=== PATIENT | male | born 1985 | race Caucasian/White ===

== ENCOUNTER 2017-07-09 18:45 | Emergency (ER) | payer OTHER ==
[~2017-07-09] VITALS: Ht 177.8 cm; Wt 68.6 kg
[~2017-07-09 18:45] MED LIST: ACETAMINOPHEN; ANUSOL-HC SUPPO25 MG RC; CATAPRES 0.1MG0.1 MG PO; CLINDAMYCIN150 MG PO; DILAUDID 4MG TAB4 MG PO; FENTANYL 25 MCG TOP; FENTANYL 75MCG; FENTANYL 75MCG TOP; HYDROMORPHONE HY8 MG PO; KLONOPIN 0.5MG0.5 MG PO; KLONOPIN 1MG1 MG PO; KLONOPIN2 MG PO; LORTAB 5/500 501 TAB PO; METHADONE H10 MG/TAB PO; NEURONTIN600 MG/TAB PO; NORCO 325 MG-51 TAB PO; NORCO 325 MG-7.1 TAB PO; OXYCODONE; OXYCONTIN30 MG PO; PERCOCET 325 MG1 TA2 PO; PHENERGAN 25 TA25 MG PO; PHENERGAN W/CO120 M1 PO; PHENERGAN W/CO120 ML PO; REMERON30 MG PO; ROXICODONE30 MG PO; SEROQUEL 1100 MG/TAB PO; SEROQUEL50 MG PO; TRILEPTAL150 MG PO; XANAX 1MG1 MG PO; XANAX0.25 MG PO; [UNRECOGNIZED DRUG - OTHER]
[2017-07-09 18:48] VITALS: TEMP 98.2
[2017-07-09] MEDS ORDERED: MIRTAZAPINE7.5 MG PO (18:54)
[2017-07-09] MEDS ORDERED: NORCO 325 MG-51 TAB PO (19:40)
[2017-07-09 20:06] VITALS: BP 138/88; PULSE 75
== END 2017-07-09 20:06 | disposition home or self-care (01) ==
LOC: COL.ER 18:45
DX: S20.219A Contusion of unspecified front wall of thorax, initial encounter (principal); F43.10 Post-traumatic stress disorder, unspecified; F17.210 Nicotine dependence, cigarettes, uncomplicated; V18.0XXA Pedal cycle driver injured in noncollision transport accident in nontraffic accident, initial encounter
CPT/HCPCS: J1885

== ENCOUNTER 2022-10-25 10:21 | Emergency (ER) | payer OTHER ==
[~2022-10-25] VITALS: Ht 180.3 cm; Wt 86.4 kg
[~2022-10-25 10:21] MED LIST changes: +MIRTAZAPINE7.5 MG PO
[2022-10-25 10:33] VITALS: TEMP 97.8
[2022-10-25 11:35] VITALS: BP 115/90; PULSE 80
== END 2022-10-25 11:35 | disposition home or self-care (01) ==
LOC: COL.ER 10:21
DX: K64.5 Perianal venous thrombosis (principal); F17.290 Nicotine dependence, other tobacco product, uncomplicated